=== PATIENT | male | born 1945 | race Caucasian/White ===

== ENCOUNTER 2018-12-20 11:42 | Emergency (ER) | payer OTHER ==
[2018-12-20] MEDS ORDERED: METHYLPREDNISOLONE 125 MG INJ ONE (12:56)
[2018-12-20] MEDS ORDERED: NA CHLORIDE 0.9% 1,000 ML ONE (12:57)
--- NOTE | 2018-12-20 14:35 | EDPHYS ---
Physician Documentation [facility] Name: Beto Augustin Age: 73 yrs Sex: Male : 1945 Arrival Date: 12/20/2018 Time: 11:48 Bed 14 Private MD: out of town, doctor ED Physician Aman Velasco HPI: 12/20 12:35 This 73 yrs old Male presents to ER via Ambulatory with complaints of pm1 Dehydration. 12:35 Patient with concerns that he might get dehydrated. Patient with cancer of mouth and pm1 throat. He typically gets a IV infusion of NS and solu-medrol yesterday but he was not home. He is vacationing. He has no complaints except wanting his infusion. 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 - Social history:: Smoking status: Smoking status: Patient uses tobacco products, smokes one pack cigarettes per day. - Ebola Screening: : Patient denies travel to an Ebola-affected area in the 21 days before illness onset. ROS: 12:35 Constitutional: Negative for fever, chills, and weight loss, Eyes: Negative for injury, pm1 pain, redness, and discharge, ENT: Negative for injury, pain, and discharge, Neck: Negative for injury, pain, and swelling, Cardiovascular: Negative for chest pain, palpitations, and edema, Respiratory: Negative for shortness of breath, cough, wheezing, and pleuritic chest pain, Abdomen/GI: Negative for abdominal pain, nausea, vomiting, diarrhea, and constipation, Back: Negative for injury and pain, : Negative for injury, bleeding, discharge, and swelling, MS/Extremity: Negative for injury and deformity, Skin: Negative for injury, rash, and discoloration, Neuro: Negative for headache, weakness, numbness, tingling, and seizure. Exam: 12:35 Constitutional: This is a well developed, well nourished patient who is awake, alert, pm1 and in no acute distress. Head/Face: Normocephalic, atraumatic. Eyes: Pupils equal round and reactive to light, extra-ocular motions intact. Lids and lashes normal. Conjunctiva and sclera are non-icteric and not injected. Cornea within normal limits. Periorbital areas with no swelling, redness, or edema. ENT: Nares patent. No nasal discharge, no septal abnormalities noted. Tympanic membranes are normal and external auditory canals are clear. Oropharynx with no redness, swelling, or masses, exudates, or evidence of obstruction, uvula midline. Mucous membranes moist. Neck: Trachea midline, no thyromegaly or masses palpated, and no cervical lymphadenopathy. Supple, full range of motion without nuchal rigidity, or vertebral point tenderness. No Meningismus. Chest/axilla: Normal chest wall appearance and motion. Nontender with no deformity. No lesions are appreciated. Cardiovascular: Regular rate and rhythm with a normal S1 and S2. No gallops, murmurs, or rubs. Normal PMI, no JVD. No pulse deficits. Respiratory: Lungs have equal breath sounds bilaterally, clear to auscultation and percussion. No rales, rhonchi or wheezes noted. No increased work of breathing, no retractions or nasal flaring. 12:35 Back: No spinal tenderness. No costovertebral tenderness. Full range of motion. Skin: Warm, dry with normal turgor. Normal color with no rashes, no lesions, and no evidence of cellulitis. MS/ Extremity: Pulses equal, no cyanosis. Neurovascular intact. Full, normal range of motion. 12:35 Abdomen/GI: Inspection: PEG tube, Bowel sounds: normal, Palpation: abdomen is soft and non-tender, in all quadrants. 12:35 Neuro: Orientation: is normal, Motor: is normal, moves all fours. Vital Signs: 12:07 BP 113 / 76; Pulse 81; Resp 17; Temp 96.8(TE); Pulse Ox 97% on R/A; Weight 77.11 kg tw2 (R); Height 6 ft. 2 in. (187.96 cm); Pain 0/10; 12:37 Temp 98.6(O); ph 13:00 BP 117 / 78; Pulse 71; Resp 18; Pulse Ox 98% on R/A; ph 14:00 BP 108 / 78; Pulse 76; Resp 18; Pulse Ox 97% on R/A; ph 15:00 BP 116 / 74; Pulse 70; Resp 16; Temp 98.4; Pulse Ox 97% on R/A; ph 12:07 Body Mass Index 21.83 (77.11 kg, 187.96 cm) tw2 MDM: 12:24 Patient medically screened. pm1 12:35 ED course: Patient no complaints other than requesting his weekly IV hydration of NS 1 pm1 L with Solu-Medrol. Patient's orders received by fax from [facility]. 14:28 Data reviewed: vital signs. Data interpreted: Pulse oximetry: on room air is 97 %. pm1 Interpretation: normal. Counseling: I had a detailed discussion with the patient and/or guardian regarding: the historical points, exam findings, and any diagnostic results supporting the discharge/admit diagnosis, the need for outpatient follow up, to return to the emergency department if symptoms worsen or persist or if there are any questions or concerns that arise at home. Administered Medications: 13:40 Drug: NS 0.9% 1000 ml Route: IV; Rate: 1000 ml; Site: Port-a-cath; ph 13:40 Drug: SOLU-Medrol 125 mg Route: IVP; Site: Port-a-cath; ph Disposition: 16:27 Co-signature as Attending Physician, Aman Velasco MD I agree with the assessment and kdr plan of care. Disposition: 12/20/18 14:34 Discharged to Home. Impression: IV hydration. - Condition is Stable. - Medication Reconciliation Form, Thank You Letter, Antibiotic Education, Prescription Opioid Use form. - Follow up: Emergency Department; When: As needed; Reason: Worsening of condition. Follow up: Private Physician; When: 2 - 3 days; Reason: Recheck today's complaints, Continuance of care, Re-evaluation by your physician. - Problem is new. - Symptoms have improved. Signatures: Aman Velasco MD MD [facility] Ann Hendricks RN RN ph Leonardo An, [employer] pm1 Mary Rossi RN RN tw2 Corrections: (The following items were deleted from the chart) 15:10 14:34 12/20/2018 14:34 Discharged to Home. Impression: IV hydration. Condition is ph Stable. Forms are Medication Reconciliation Form, Thank You Letter, Antibiotic Education, Prescription Opioid Use. Follow up: Emergency Department; When: As needed; Reason: Worsening of condition. Follow up: Private Physician; When: 2 - 3 days; Reason: Recheck today's complaints, Continuance of care, Re-evaluation by your physician. Problem is new. Symptoms have improved. pm1
--- NOTE | 2018-12-20 14:35 | ER ---
Nurse's Notes [facility] Name: Beto Augustin Age: 73 yrs Sex: Male : 1945 Arrival Date: 12/20/2018 Time: 11:48 Bed 14 Private MD: out of town, doctor Diagnosis: IV hydration Presentation: 12/20 12:05 Presenting complaint: Patient states: i get iv fluids at home once a week because i am tw2 on a feeding tube, and if i dont get enough water i get dehydrated, son states "he was not at home and didn't get it Tuesday, they faxed the order but it was shredded, he has port access". Transition of care: patient was not received from another setting of care. Onset of symptoms was December 20, 2018. Risk Assessment: Do you want to hurt yourself or someone else? Patient reports no desire to harm self or others. Initial Sepsis Screen: Does the patient meet any 2 criteria? No. Patient's initial sepsis screen is negative. Does the patient have a suspected source of infection? No. Patient's initial sepsis screen is negative. Care prior to arrival: None. 12:05 Method Of Arrival: Ambulatory tw2 12:05 Acuity: VIVIANA 2 tw2 Triage Assessment: 12:08 General: Appears in no apparent distress. Behavior is calm, cooperative, appropriate tw2 for age. Pain: Denies pain. 12:08 Cardiovascular: Reports port a cath upper RIGHT chest. GI: Reports PEG tube. 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 - Social history:: Smoking status: Smoking status: Patient uses tobacco products, smokes one pack cigarettes per day. - Ebola Screening: : Patient denies travel to an Ebola-affected area in the 21 days before illness onset. Screenin:30 Abuse screen: Denies threats or abuse. Denies injuries from another. Nutritional ph screening: No deficits noted. Tuberculosis screening: No symptoms or risk factors identified. Fall Risk None identified. Assessment: 12:30 General: Appears in no apparent distress. comfortable, slender, well groomed, Behavior ph is calm, cooperative, appropriate for age, Denies fever. Pain: Denies pain. Neuro: Level of Consciousness is awake, alert, obeys commands, Oriented to person, place, time, situation, Denies weakness dizziness. Cardiovascular: Capillary refill < 3 seconds in bilateral fingers Patient's skin is warm and dry. Respiratory: Airway is patent Respiratory effort is even, unlabored, Respiratory pattern is regular, symmetrical. GI: No signs and/or symptoms were reported involving the gastrointestinal system. PEG tube in place, clamped. Site clean. Patient currently denies nausea, vomiting. Derm: Skin is healthy with good turgor, Skin is pink, warm \\T\\ dry. Musculoskeletal: Circulation, motion, and sensation intact. Range of motion: intact in all extremities. 13:30 Reassessment: Patient appears in no apparent distress at this time. Patient and/or ph family updated on plan of care and expected duration. Pain level reassessed. Patient is alert, oriented x 3, equal unlabored respirations, skin warm/dry/pink. 15:08 Reassessment: Patient appears in no apparent distress at this time. Patient and/or ph family updated on plan of care and expected duration. Pain level reassessed. Patient is alert, oriented x 3, equal unlabored respirations, skin warm/dry/pink. Port flushed w/ Heparin and access d/c'd, pt d/c home w/ son. Vital Signs: 12:07 BP 113 / 76; Pulse 81; Resp 17; Temp 96.8(TE); Pulse Ox 97% on R/A; Weight 77.11 kg tw2 (R); Height 6 ft. 2 in. (187.96 cm); Pain 0/10; 12:37 Temp 98.6(O); ph 13:00 BP 117 / 78; Pulse 71; Resp 18; Pulse Ox 98% on R/A; ph 14:00 BP 108 / 78; Pulse 76; Resp 18; Pulse Ox 97% on R/A; ph 15:00 BP 116 / 74; Pulse 70; Resp 16; Temp 98.4; Pulse Ox 97% on R/A; ph 12:07 Body Mass Index 21.83 (77.11 kg, 187.96 cm) tw2 ED Course: 11:48 Patient arrived in ED. mr 11:49 out of town, doctor is Private Physician. mr 12:07 Triage completed. tw2 12:07 Arm band placed on. tw2 12:14 Ann Hendricks RN is Primary Nurse. ph 12:17 Leonardo An NP is PHCP. pm1 12:17 Aman Velasco MD is Attending Physician. pm1 12:30 Patient has correct armband on for positive identification. Placed in gown. Bed in low ph position. Call light in reach. Side rails up X2. Pulse ox on. NIBP on. Door closed. Noise minimized. Warm blanket given. Pillow given. 13:35 Accessed Port-a-Cath. using accessed w/ # 20 Cronin needle, ,sterile technique, per hospital protocol. Clean \\T\\ dry. Dressing intact. Good blood return. Flushes easily. 15:10 No provider procedures requiring assistance completed. ph 15:10 IV discontinued, intact, bleeding controlled, No redness/swelling at site. Pressure ph dressing applied. Administered Medications: 13:40 Drug: NS 0.9% 1000 ml Route: IV; Rate: 1000 ml; Site: Port-a-cath; ph 13:40 Drug: SOLU-Medrol 125 mg Route: IVP; Site: Port-a-cath; ph Outcome: 14:34 Discharge ordered by . pm1 15:10 Patient left the ED. ph 15:10 Discharged to home ambulatory, with family. ph 15:10 Condition: good 15:10 Discharge instructions given to patient, Instructed on discharge instructions, follow up and referral plans. Demonstrated understanding of instructions, follow-up care. Signatures: Janay Tran mr Ann Hendricks RN RN ph Leonardo An NP CHART WRITER pm1 Mary Rossi RN RN tw2 Corrections: (The following items were deleted from the chart) 12:08 12:08 GI: Reports tw2 tw2
[2018-12-20] MEDS ORDERED: HEPARIN 500 UNIT/5 ML SYR IV ONE (15:01)
== END 2018-12-20 15:10 | disposition home or self-care (01) ==
LOC: ER 11:42
DX: E86.0 Dehydration (principal); C14.0 Malignant neoplasm of pharynx, unspecified; Z88.8 Allergy status to other drugs, medicaments and biological substances; Z91.041 Radiographic dye allergy status
CPT/HCPCS: 96374; 99284; J1642; J7030; J2930